=== PATIENT | female | born 1970 | race Caucasian/White ===

== ENCOUNTER 2017-02-07 10:30 | Emergency (ER) | payer OTHER ==
[~2017-02-07] VITALS: Ht 172.7 cm; Wt 76.0 kg
[~2017-02-07 10:30] MED LIST: LEVO50TA5 PO
[2017-02-07] MEDS ORDERED: AMIT10TA PO (10:52)
[2017-02-07] MEDS ORDERED: ONDANSETRON 2MG/ML, 2ML IVPush ONE (11:00)
[2017-02-07] MEDS ORDERED: SODIUM CHLORIDE 0.9% 1,000ML IVBOLUS ONE (11:00)
[2017-02-07] MEDS ORDERED: SODIUM CHLORIDE FLUSH 10ML SYR IVF ONE (11:00)
[2017-02-07] MEDS ORDERED: MORPHINE SULFATE 4 MG/ML, 1ML ONE ×2 (11:18→12:34)
[2017-02-07] MEDS ORDERED: ONDANSETRON 2MG/ML, 2ML ONE (11:18)
[2017-02-07] MEDS: MORPHINE SULFATE 4 MG/ML, 1ML IVPush PRN ×2 (11:25→12:35)
[2017-02-07 11:35] LABS: BLOOD UREA NITROGEN 12 mg/dL (7-18)
[2017-02-07 13:57] VITALS: BP 128/75
[2017-02-07] MEDS ORDERED: OMNIPAQUE 350 MG/ML, 100ML BOTTLE ONE (13:58)
== END 2017-02-07 15:00 | disposition home or self-care (01) ==
LOC: ED 11:29
DX: S20.212A Contusion of left front wall of thorax, initial encounter (principal); S39.011A Strain of muscle, fascia and tendon of abdomen, initial encounter; Z90.710 Acquired absence of both cervix and uterus; X58.XXXA Exposure to other specified factors, initial encounter; Y93.89 Activity, other specified; Y92.89 Other specified places as the place of occurrence of the external cause; Y99.9 Unspecified external cause status
CPT/HCPCS: 36415; 71020; 74177; 80048; 82040; 84703; 85025; 96361; 96374; 96375; 96376; 99285; J2405; J7030; Q9967